=== PATIENT | female | born 1970 | race Asian ===

== ENCOUNTER 2016-10-27 23:11 | Emergency (ER) | payer BC ==
[~2016-10-27] VITALS: Ht 154.9 cm; Wt 43.6 kg
[~2016-10-27 23:11] MED LIST: BEN50 PO; HC1C30 TOP; TRAM50TA2 PO
[2016-10-27 23:59] VITALS: Ht 154.9 cm; Wt 43.6 kg
[2016-10-28] MEDS ORDERED: SOD CHLORIDE 0.9% 500 ML IV STA (01:41)
[2016-10-28] MEDS ORDERED: KETOROLAC 30 MG INJ IV STA (02:20)
[2016-10-28 02:26] LABS: ADD SCAN DIFF NO
[2016-10-28 02:29] LABS: BASOPHIL # 0.1 10^3/ul (0.0-0.1); EOSINOPHILS # 0.4 10^3/ul (0.0-0.5); EOSINOPHILS % 6.1 % (0.0-7.0); HEMATOCRIT 36.8 % (37.0-47.0); HEMOGLOBIN 12.3 g/dl (12.0-16.0); LYMPHOCYTES # 2.4 10^3/ul (0.8-2.9); LYMPHOCYTES % 40.7 % (15.0-51.0); MEAN CORPUSCULAR HEMOGLOBIN 31.3 pg (29.0-33.0); MEAN CORPUSCULAR HGB CONC 33.4 g/dl (32.0-37.0); MEAN CORPUSCULAR VOLUME 93.6 fl (82.0-101.0); MEAN PLATELET VOLUME 10.1 fl (7.4-10.4); MONOCYTE # 0.5 10^3/ul (0.3-0.9); MONOCYTES % 8.3 % (0.0-11.0); NEUTROPHIL # 2.6 10^3/ul (1.6-7.5); NEUTROPHILS % 43.4 % (39.0-77.0); PLATELET COUNT 209 10^3/UL (140-415); RED BLOOD COUNT 3.93 10^6/ul (4.20-5.40); RED CELL DISTRIBUTION WIDTH 11.9 % (11.5-14.5); WHITE BLOOD COUNT 5.9 10^3/ul (4.8-10.8)
[2016-10-28 02:38] LABS: INR 0.91; PROTIME 12.3 Sec (12.2-14.2)
[2016-10-28 02:39] LABS: PARTIAL THROMBOPLASTIN TIME 31.5 Sec (25.0-35.0)
--- NOTE | 2016-10-28 02:42 | RADRPT ---
PROCEDURE: XR Chest. CLINICAL INDICATION: Chest pain. TECHNIQUE: Single frontal chest x-ray. COMPARISON: 03/11/2015 FINDINGS: The cardiomediastinal silhouette is unremarkable. The lungs are clear. No focal infiltrate is seen. There is no pleural effusion. There is no pneumothorax. The osseous structures are unremarkable. IMPRESSION: 1. No active disease. RPTAT: HMVK .Eric Angelo MD, MD Date Time Electronically viewed and signed by .Eric Angelo MD, on 10/28/2016 02:42 .K/
[2016-10-28 02:45] LABS: CHLORIDE 104 mmol/L (97-110)
[2016-10-28 02:46] LABS: ALBUMIN 3.9 g/dl (3.3-4.9); POTASSIUM 3.8 mmol/L (3.5-5.1); SODIUM 146 mmol/L (135-144)
[2016-10-28 02:49] LABS: ALANINE AMINOTRANSFERASE 23 IU/L (13-69); ALBUMIN/GLOBULIN RATIO 1.44; ALKALINE PHOSPHATASE 45 IU/L (42-121); ANION GAP 15 (8-16); ASPARTATE AMINO TRANSFERASE 21 IU/L (15-46); BILIRUBIN,INDIRECT 0.3 mg/dl (0-1.1); BILIRUBIN,TOTAL 0.3 mg/dl (0.2-1.3); BLOOD UREA NITROGEN 14 mg/dl (7-20); CALCIUM 9.2 mg/dl (8.4-10.2); CARBON DIOXIDE 31 mmol/L (21-31); CREATININE 0.57 mg/dl (0.44-1.00); GLUCOSE 55 mg/dl (70-220); TOTAL PROTEIN 6.6 g/dl (6.1-8.1)
[2016-10-28 02:57] LABS: B-TYPE NATRIURETIC PEPTIDE 82 PG/ML (0-125)
[2016-10-28 03:11] LABS: TROPONIN-I < 0.012 ng/ml (0.00-0.12)
--- NOTE | 2016-10-28 03:16 | ERD ---
ER Documentation Chief Complaint Date/Time DATE: 10/28/16 TIME: 03:14 Chief Complaint DIZZINESS X3 DAYS ALSO C/O RIGHT UPPER SIDE TRUNK PAIN HPI This is a 46-year-old complains of dizziness for 3 days. Also, the right upper side trunk pain. Pain in her right upper trunk is really in her right chest wall. At this point tender to palpation. Patient says she hit it against a corner of a table. Denies any fevers or chills. Denies any chest pain. Denies any other current complaints ROS All systems reviewed and are negative except as per history of present illness. Medications Home Meds Active Scripts Diphenhydramine Hcl* (Benadryl*) 50 Mg Cap, 50 MG PO Q6 Y for ITCHING, #14 Prov:PRIMO ADAM NP 05/05/15 Hydrocortisone* Topical (Hydrocortisone* Topical) 1%-28.35 Gm Cream..g., 1 APPLIC TOP BID for 14 Days, TUB Prov:PRIMO ADAM NP 05/05/15 Tramadol HCl (Tramadol HCl) 50 Mg Tab, 50 MG PO Q4 Y for PAIN, #10 TAB Prov:CELESTINO NAVARRO MD 03/11/15 Allergies Allergies: Coded Allergies: No Known Allergy (Unverified , 03/11/15) PMhx/Soc History of Surgery: No Anesthesia Reaction: No Hx Neurological Disorder: No Hx Respiratory Disorders: No Hx Cardiac Disorders: Yes (HTN) Hx Psychiatric Problems: No Hx Miscellaneous Medical Probl: No Hx Alcohol Use: No Hx Substance Use: No Hx Tobacco Use: No Smoking Status: Never smoker Physical Exam Vitals Vital Signs Date Time Temp Pulse Resp B/P Pulse Ox O2 Delivery O2 Flow Rate FiO2 10/28/16 02:16 60 19 133/86 100 Room Air 10/27/16 23:59 97.0 61 16 106/71 100 Physical Exam Const: [] Head: Atraumatic Eyes: Normal Conjunctiva ENT: Normal External Ears, Nose and Mouth. Neck: Full range of motion..~ No meningismus. Resp: Clear to auscultation bilaterally Cardio: Regular rate and rhythm, no murmurs Abd: Soft, non tender, non distended. Normal bowel sounds Skin: No petechiae or rashes Back: No midline or flank tenderness Ext: No cyanosis, or edema Neur: Awake and alert Psych: Normal Mood and Affect Result Diagram: 10/28/16 0210 10/28/16 0210 Results 24 hrs Laboratory Tests Test 10/28/16 02:10 Activated Partial Thromboplast Time 31.5Sec Alanine Aminotransferase (ALT/SGPT) 23IU/L Albumin 3.9g/dl Albumin/Globulin Ratio 1.44 Alkaline Phosphatase 45IU/L Anion Gap 15 Aspartate Amino Transf (AST/SGOT) 21IU/L B-Type Natriuretic Peptide 82PG/ML Basophils # 0.110^3/ul Basophils % 1.0% Blood Urea Nitrogen 14mg/dl Calcium Level 9.2mg/dl Carbon Dioxide Level 31mmol/L Chloride Level 104mmol/L Creatinine 0.57mg/dl Direct Bilirubin 0.00mg/dl Eosinophils # 0.410^3/ul Eosinophils % 6.1% Globulin 2.70g/dl Glucose Level 55mg/dl Hematocrit 36.8% Hemoglobin 12.3g/dl INR International Normalized Ratio 0.91 Indirect Bilirubin 0.3mg/dl Lymphocytes # 2.410^3/ul Lymphocytes % 40.7% Mean Corpuscular Hemoglobin 31.3pg Mean Corpuscular Hemoglobin Concent 33.4g/dl Mean Corpuscular Volume 93.6fl Mean Platelet Volume 10.1fl Monocytes # 0.510^3/ul Monocytes % 8.3% Neutrophils # 2.610^3/ul Neutrophils % 43.4% Nucleated Red Blood Cells # 0.010^3/ul Nucleated Red Blood Cells % 0.0/100WBC Platelet Count 71803^3/UL Potassium Level 3.8mmol/L Prothrombin Time 12.3Sec Prothrombin Time Ratio 1.0 Red Blood Count 3.9310^6/ul Red Cell Distribution Width 11.9% Sodium Level 146mmol/L Total Bilirubin 0.3mg/dl Total Protein 6.6g/dl Troponin I < 0.012ng/ml White Blood Count 5.910^3/ul Current Medications Medications (Trade) Dose Ordered Sig/Charlie Route PRN Reason Start Time Stop Time Status Last Admin Dose Admin Sodium Chloride (NS) 500 ml @ 500 mls/hr Q1H STAT IV 10/28/16 01:41 10/28/16 02:40 DC 10/28/16 02:20 Ketorolac Tromethamine (Toradol) 30 mg ONCE STAT IV 10/28/16 02:20 10/28/16 02:21 DC 10/28/16 03:05 Procedures/MDM EKG: Rate/Rhythm: Normal Sinus Rhythm QRS, ST, T-waves: No changes consistent w/ acute ischemia Impression: No evidence of ischemia or arrhythmia Chest X-ray 1V Interpreted by me: Soft Tissue: No acute abnormalities Bones: No acute abnormalities Mediastinum/Cardiac Silhouette/Lungs: No acute abnormalities Medical decision-makin-year-old female as well as be acute gastroenteritis likely secondary to trauma. At this point is clinically stable. Pain is resolved patient be discharged with Naprosyn. Follow-up with PCP. Return for worsening symptoms. Departure Diagnosis: Primary Impression: Costochondritis Condition: Stable AUGUSTINE SMILEY Oct 28, 2016 03:15
[2016-10-28] MEDS ORDERED: NAPR-260 PO (03:17)
[2016-10-28 03:55] VITALS: BP 106/78; PULSE 55; RESP 16; TEMP 98.1
== END 2016-10-28 03:59 | disposition home or self-care (01) ==
LOC: E/R 23:11
DX: M94.0 Chondrocostal junction syndrome [Tietze] (principal); I10 Essential (primary) hypertension; R40.2142 Coma scale, eyes open, spontaneous, at arrival to emergency department; R40.2252 Coma scale, best verbal response, oriented, at arrival to emergency department; R40.2362 Coma scale, best motor response, obeys commands, at arrival to emergency department; R07.89 Other chest pain
CPT/HCPCS: 36415; 71010; 80053; 83880; 84484; 85025; 85610; 85730; 93005; 96374; 99285; J1885; J7040

== ENCOUNTER 2017-04-17 05:46 | Emergency (ER) | payer BC ==
[~2017-04-17] VITALS: Ht 152.4 cm; Wt 42.5 kg
[~2017-04-17 05:46] MED LIST changes: +NAPR-260 PO
[2017-04-17 05:51] VITALS: Ht 152.4 cm; Wt 42.5 kg
[2017-04-17] MEDS ORDERED: IBUPROFEN 800 MG TAB PO ONE (06:30)
[2017-04-17] MEDS ORDERED: ACET500C5 PO (07:27)
[2017-04-17] MEDS ORDERED: IBUP-1542 PO (07:27)
[2017-04-17] MEDS ORDERED: CETI10CA PO (07:28)
[2017-04-17] MEDS ORDERED: FLUT9.9S NASAL (07:28)
--- NOTE | 2017-04-17 07:32 | ERD ---
ER Documentation Chief Complaint Date/Time DATE: 04/17/17 TIME: 07:30 Chief Complaint sore throat x 2 days HPI This 46-year-old female who presents emergency department today complaining of sore throat for the past couple of days. States she also has some nasal congestion. She has not taken any medication. Denies any fevers or chills. States her daughter is also sick with a cough. ROS All systems reviewed and are negative except as per history of present illness. Medications Home Meds Active Scripts Fluticasone Propionate (Flonase Allergy Relief) 9.9 Ml [place].susp, 2 SPRAY NASAL DAILY, #1 BOTTLE TO EACH NOSTRIL Prov:WALKER RONQUILLO PA-C 04/17/17 Cetirizine Hcl* (Zyrtec*) 10 Mg Capsule, 10 MG PO DAILY, #14 TAB.CHEW Prov:WALKER RONQUILLO PA-C 04/17/17 Acetaminophen* (Tylophen*) 500 Mg Capsule, 1 CAP PO Q6H Y for PAIN AND OR ELEVATED TEMP, #30 CAP Prov:WALKER RONQUILLO PA-C 04/17/17 Ibuprofen* (Motrin*) 600 Mg Tab, 600 MG PO Q6, #30 TAB Prov:WALKER RONQUILLO PA-C 04/17/17 Naproxen* (Naprosyn*) 500 Mg Tablet, 500 MG PO BID Y for PAIN AND/OR INFLAMMATION, #30 TAB Prov:AUGUSTINE SMILEY 10/28/16 Diphenhydramine Hcl* (Benadryl*) 50 Mg Cap, 50 MG PO Q6 Y for ITCHING, #14 Prov:PRIMO ADAM NP 05/05/15 Hydrocortisone* Topical (Hydrocortisone* Topical) 1%-28.35 Gm Cream..g., 1 APPLIC TOP BID for 14 Days, TUB Prov:PRIMO ADAM NP 05/05/15 Tramadol HCl (Tramadol HCl) 50 Mg Tab, 50 MG PO Q4 Y for PAIN, #10 TAB Prov:CELESTINO NAVARRO MD 03/11/15 Allergies Allergies: Coded Allergies: No Known Allergy (Unverified , 03/11/15) PMhx/Soc History of Surgery: No Anesthesia Reaction: No Hx Neurological Disorder: No Hx Respiratory Disorders: No Hx Cardiac Disorders: Yes (HTN) Hx Psychiatric Problems: No Hx Miscellaneous Medical Probl: No Hx Alcohol Use: No Hx Substance Use: No Hx Tobacco Use: No Physical Exam Vitals Vital Signs Date Time Temp Pulse Resp B/P Pulse Ox O2 Delivery O2 Flow Rate FiO2 04/17/17 05:51 97.8 63 20 107/73 99 Physical Exam Const: NAD Head: Atraumatic Eyes: Normal Conjunctiva ENT: Ears TMs normal. Nose no drainage. Throat erythema no exudate Neck: Full range of motion..~ No meningismus. Resp: Clear to auscultation bilaterally Cardio: Regular rate and rhythm, no murmurs Abd: Soft, non tender, non distended. Normal bowel sounds Skin: No petechiae or rashes Neur: Awake and alert Psych: Normal Mood and Affect Results 24 hrs Current Medications Medications (Trade) Dose Ordered Sig/Charlie Route PRN Reason Start Time Stop Time Status Last Admin Dose Admin Ibuprofen (Motrin) 800 mg ONCE ONCE PO 04/17/17 06:30 04/17/17 06:31 DC 04/17/17 06:37 Procedures/MDM This 46-year-old female presents emergency department today complaining of a sore throat for the past couple of days as well as congestion. Patient's vital signs are stable. She is afebrile and otherwise well-appearing. Do not feel she requires laboratory workup or imaging at this time. Her physical exam is essentially benign. Low suspicion for strep pharyngitis, peritonsillar abscess , retropharyngeal abscess. Symptoms at this time is consistent with sore throat likely viral. Patient is here with her daughter who has a cough that is also viral in nature.Patient was driving herself and was therefore given Motrin here in the emergency department. She was given a prescription for Tylenol, Motrin, Zyrtec and Flonase for home. At this time the patient is stable for discharge and outpatient management. Patient should follow up with their PCP in the next 1-2 days. They may return to the emergency department sooner for any persistent or worsening of symptoms. Patient understood and agreed with the plan. Departure Diagnosis: Primary Impression: Sore throat Condition: Fair Patient Instructions: Self-Care for Sore Throats Additional Instructions: Call your primary care doctor TOMORROW for an appointment during the next 1-2 days.See the doctor sooner or return here if your condition worsens before your appointment time. Take Tylenol or Motrin for pain Take Flonase and Zyrtec as prescribed WALKER RONQUILLO PA-C Apr 17, 2017 07:32
== END 2017-04-17 07:39 | disposition home or self-care (01) ==
LOC: FTE 05:46
DX: J02.9 Acute pharyngitis, unspecified (principal); I10 Essential (primary) hypertension
CPT/HCPCS: 99283; Z7610

== ENCOUNTER 2017-08-24 06:06 | Emergency (ER) | END 2017-08-24 07:12 | disposition home or self-care (01) ==

== ENCOUNTER 2017-10-05 15:06 | Emergency (ER) | END 2017-10-05 22:00 | disposition left against medical advice (07) ==

== ENCOUNTER 2017-11-22 21:13 | Emergency (ER) | END 2017-11-22 21:36 | disposition home or self-care (01) ==

== ENCOUNTER 2018-02-14 07:20 | Emergency (ER) | END 2018-02-14 08:47 | disposition home or self-care (01) ==

== ENCOUNTER 2018-11-05 22:49 | Emergency (ER) | payer BC ==
[~2018-11-05] VITALS: Wt 44.1 kg
[~2018-11-05 22:49] MED LIST changes: +ACET500C5 PO; +AZEL6DRO2 BOTH EYES; -BEN50 PO; +BENZ-6 PO; -HC1C30 TOP; +HC30CR25 TOP; +IBUP-1544 PO; +LORA10TA3 PO; -NAPR-260 PO; -TRAM50TA2 PO
[2018-11-05 22:53] VITALS: BP 117/64; PULSE 68; RESP 18
[2018-11-06] MEDS ORDERED: ACETAMINOPHEN 500 MG TAB PO STA (00:40)
--- NOTE | 2018-11-06 01:40 | ERD ---
ER Documentation Chief Complaint Chief Complaint DYSURIA X'S 3 DAYS HPI Patient is a 48-year-old female no past medical history history presents the ER for concerns of dysuria times 3 days. Patient reports burning pain with urination. She denies any flank pain. Patient admits to chills however she denies any fevers. Patient has no nausea, vomiting, hematuria. Patient does report cough, rhinorrhea and generalized body aches for the last 3 days as well. Patient states she has been taking Pyridium for her symptoms. Patient denies any chest pain, shortness of breath, abdominal pain or diarrhea. ROS All systems reviewed and are negative except as per history of present illness. Medications Home Meds Active Scripts Guaifenesin-Dextromethorphan* (Robitussin* DM) 100MG/10MG/5ML Syrup, 5 ML PO Q4H PRN for COUGH, #4 OZ Prov:NADEEN LINTON PA-C 11/06/18 Cephalexin* (Keflex*) 500 Mg Capsule, 500 MG PO BID for 7 Days, CAP Prov:NADEEN LINTON PA-C 11/06/18 Acetaminophen* (Tylophen*) 500 Mg Capsule, 1 CAP PO Q6H PRN for PAIN AND OR ELEVATED TEMP, #20 CAP Prov:NADEEN LINTON PA-C 02/14/18 Hydrocortisone* Topical (Hydrocortisone* Topical) 2.5%-28.3 Gm Cream..g., 1 APPLIC TOP BID, #1 TUB Prov:MAHSA CHRISTIANSEN PA-C 11/22/17 Ibuprofen* (Ibuprofen*) 800 Mg Tablet, 800 MG PO Q6H PRN for PAIN, #30 TAB Prov:MAHSA CHRISTIANSEN PA-C 11/22/17 Benzonatate* (Tessalon Perle*) 100 Mg Capsule, 100 MG PO Q8H PRN for COUGH, #20 CAP Prov:MAHSA CHRISTIANSEN PA-C 11/22/17 Reported Medications Azelastine Hcl* (Azelastine Hcl*) 0.05%-6 Ml Opht Drops, 1 DROP BOTH EYES BID, #1 EA 10/05/17 Loratadine* (Loratadine*) 10 Mg Tablet, 10 MG PO DAILY, #30 TAB 10/05/17 Allergies Allergies: Coded Allergies: No Known Allergy (Unverified , 02/14/18) PMhx/Soc History of Surgery: No Anesthesia Reaction: No Hx Neurological Disorder: No Hx Respiratory Disorders: No Hx Cardiac Disorders: No Hx Psychiatric Problems: No Hx Miscellaneous Medical Probl: No Hx Alcohol Use: No Hx Substance Use: No Hx Tobacco Use: No Smoking Status: Never smoker FmHx Family History: No diabetes Physical Exam Vitals Vital Signs Date Temp Pulse Resp B/P (MAP) Pulse Ox O2 O2 Flow FiO2 Time Delivery Rate 11/05/18 98.7 68 18 117/64 100 22:53 (81) Physical Exam GENERAL: Well-developed, well-nourished female. Appears in no acute distress. HEAD: Normocephalic, atraumatic. No deformities or ecchymosis. EYE: Pupils equal, round, and reactive to light. EOMs intact. No conjunctival erythema. No eye discharge. ENT: External ear without any masses or tenderness. Auditory canals clear bilaterally. TM visualized bilaterally, non-erythematous, non-bulging. Nasal mucosa pink with no discharge. Oropharynx is pink without any tonsillar erythema or exudates. No uvula deviation. No kissing tonsils. NECK: Supple. No meningismus. Normal ROM of the neck. LUNG: Clear to auscultation bilaterally. No rhonchi, wheezing, rales or coarse breath sounds. HEART: Regular rate and rhythm. No murmurs, rubs or gallops. ABDOMEN: Soft, and nondistended. Tender to palpation in the suprapubic region. Positive bowel sounds in all four quadrants. No rebound tenderness, no guarding. (-) McBurney's point tenderness. No CVA tenderness. EXTREMITIES: Equal pulses bilaterally. No peripheral clubbing, cyanosis or edema. No unilateral leg swelling. NEUROLOGIC: Alert and oriented to person, place and time. Moving all four extremities. 5/5 strength in all extremities. Normal speech. Steady gait. SKIN: Normal color. Warm and dry. No rashes or lesions. Results 24 hrs Laboratory Tests Test 11/06/18 01:10 11/06/18 01:19 Bedside Urine pH (LAB) 6.0 Bedside Urine Protein (LAB) 1+ Bedside Urine Glucose (UA) Negative Bedside Urine Ketones (LAB) Negative Bedside Urine Blood 2+ Bedside Urine Nitrite (LAB) Positive Bedside Urine Leukocyte Esterase (L 1+ POC Beta HCG, Qualitative NEGATIVE Current Medications Medications Dose Sig/Charlie Start Time Status Last (Trade) Ordered Route PRN Stop Time Admin Dose Reason Admin 1,000 mg ONCE STAT 11/06/18 DC 11/06/18 Acetaminophen PO 00:40 01:05 (Tylenol 11/06/18 00:42 Tab) Procedures/MDM MEDICAL DECISION MAKING: This is a 48-year-old female presents the ER for concerns of dysuria times 3 days with associated chills. Patient denies any fevers, nausea, vomiting or flank pain.. Vital signs were reviewed. Patient was afebrile. UA did show 1+ leukocyte esterase, positive nitrites and 2+ blood. Urine test was negative. Given that patient also reported generalized body aches, cough and rhinorrhea, flu swab was also obtained and was negative. At this time, the patient's presentation is most consistent with UTI and URI. Low suspicion for pyelonephritis, nephrolithiasis, appendicitis, diverticulitis, ectopic , PID, ovarian torsion, pneumonia, strep pharyngitis, meningitis, sepsis. Patient was nontoxic, [id number] prior to discharge. PRESCRIPTIONS: Keflex, Robitussin, Tylenol DISCHARGE: At this time, patient is stable for discharge and outpatient management. I have instructed the patient to follow-up with his/her primary care physician in 1-2 days. Patient should repeat UA in 2 weeks to check for resolution of urinary tract infection. If symptoms persist, patient may need to see a specialist for further examinations and testing. I have instructed the patient to promptly return to the ER at any time for any new or worsening symptoms including increased pain, fever, nausea, vomiting, urinary changes or weakness. The marisela ent and/or family expressed understanding of and agreement with this plan. All questions were answered. Home care instructions were provided. Disclaimer: Inadvertent spelling and grammatical errors are likely due to EHR/dictation software use and do not reflect on the overall quality of patient care. Also, please note that the electronic time recorded on this note does not necessarily reflect the actual time of the patient encounter. Departure Diagnosis: Primary Impression: UTI (urinary tract infection) Urinary tract infection type: site unspecified Hematuria presence: with hematuria Qualified Codes: N39.0 - Urinary tract infection, site not specified; R31.9 - Hematuria, unspecified Additional Impression: URI (upper respiratory infection) URI type: unspecified URI Qualified Codes: J06.9 - Acute upper respiratory infection, unspecified Condition: Fair Patient Instructions: Understanding Urinary Tract Infections (UTIs) Referrals: [facility] YOU HAVE RECEIVED A MEDICAL SCREENING EXAM AND THE RESULTS INDICATE THAT YOU DO NOT HAVE A CONDITION THAT REQUIRES URGENT TREATMENT IN THE EMERGENCY DEPARTMENT. FURTHER EVALUATION AND TREATMENT OF YOUR CONDITION CAN WAIT UNTIL YOU ARE SEEN IN YOUR DOCTORS OFFICE WITHIN THE NEXT 1-2 DAYS. IT IS YOUR RESPONSIBILITY TO MAKE AN APPOINTMENT FOR FOLOW-UP CARE. IF YOU HAVE A PRIMARY DOCTOR --you should call your primary doctor and schedule an appointment IF YOU DO NOT HAVE A PRIMARY DOCTOR YOU CAN CALL OUR PHYSICIAN REFERRAL HOTLINE AT IF YOU CAN NOT AFFORD TO SEE A PHYSICIAN YOU CAN CHOSE FROM THE FOLLOWING [facility] [address] [facility]. [facility] [address] [facility] [address] [facility] [address] [facility] [address] [facility]. [facility] [address] [facility]. [facility] YOU HAVE RECEIVED A MEDICAL SCREENING EXAM AND THE RESULTS INDICATE THAT YOU DO NOT HAVE A CONDITION THAT REQUIRES URGENT TREATMENT IN THE EMERGENCY DEPARTMENT. FURTHER EVALUATION AND TREATMENT OF YOUR CONDITION CAN WAIT UNTIL YOU ARE SEEN IN YOUR DOCTORS OFFICE WITHIN THE NEXT 1-2 DAYS. IT IS YOUR RESPONSIBILITY TO MAKE AN APPOINTMENT FOR FOLOW-UP CARE. IF YOU HAVE A PRIMARY DOCTOR --you should call your primary doctor and schedule and appointment IF YOU DO NOT HAVE A PRIMARY DOCTOR YOU CAN CALL OUR PHYSICIAN REFERRAL HOTLINE AT . IF YOU CAN NOT AFFORD TO SEE A PHYSICIAN YOU CAN CHOSE FROM THE FOLLOWING [facility] INSTITUTIONS: [facility] [address] [place] [address] [facility] [address] [place] [address] [facility] + [facility] [address] [place] [address] Additional Instructions: Call your primary care doctor TOMORROW for an appointment during the next 1-2 days.See the doctor sooner or return here if your condition worsens before your appointment time. NADEEN LINTON PA-C Nov 06, 2018 01:40
[2018-11-06] MEDS ORDERED: CEPH-443 PO (01:45)
[2018-11-06] MEDS ORDERED: GUAI5SYR2 PO (01:46)
[2018-11-06] MEDS ORDERED: ACET500C5 PO (01:47)
== END 2018-11-06 02:10 | disposition home or self-care (01) ==
LOC: FTE 22:49
DX: N39.0 Urinary tract infection, site not specified (principal); J06.9 Acute upper respiratory infection, unspecified
CPT/HCPCS: 81003; 81025; 87400; 99283; Z7610